=== PATIENT | female | born 1990 | race Two or more races ===

== ENCOUNTER 2020-09-13 17:58 | Emergency (ER) | payer MEDICARE, OTHER ==
[~2020-09-13] VITALS: Ht 157.5 cm; Wt 65.8 kg
--- NOTE | 2020-09-13 18:30 | NUR ---
urine collected and send to lab
--- NOTE | 2020-09-13 18:30 | NUR ---
BIBS FOR C/O BURNING UPON URINATION, URINARY FREQUENCY AND PAINFUL URINATION. DENIES CHILLS/FEVER. WILL CONTINUE TO MONITOR THE PATIENT.
[2020-09-13 19:58] LABS: BILIRUBIN,URINE NEGATIVE (NEGATIVE); COLOR,URINE YELLOW (YELLOW); LEUKOCYTE ESTERASE ,URINE NEGATIVE (NEGATIVE); NITRITE, URINE NEGATIVE (NEGATIVE); PROTEIN,URINE NEGATIVE (NEGATIVE); UGLUCOSE NEGATIVE (NEGATIVE); UROBILINOGEN,URINE 0.2 EU/dL (0.2)
--- NOTE | 2020-09-13 19:58 | NUR ---
CALLED LAB FOR FOLLOW UP FOR URINE. STATES THAT IT WILL TAKE 5-10MINUTES.
[2020-09-13] MEDS ORDERED: DOXY100C41 PO (20:20)
[2020-09-13] MEDS ORDERED: CEFTRIAXONE 500 MG VIAL ONE (20:21)
[2020-09-13] MEDS ORDERED: LIDOCAINE /MPF 1% VIAL 5 ML VIAL ONE (20:22)
[2020-09-13] MEDS ORDERED: LORAZEPAM 1 MG TABLET ONE (20:22)
[2020-09-13] MEDS ORDERED: LORAZEPAM 1 MG TABLET PO ONE (20:30)
[2020-09-13] MEDS ORDERED: CEFTRIAXONE 1 G VIAL IM ONE (20:30)
--- NOTE | 2020-09-13 20:31 | NUR ---
Patient discharged to home in stable condition. Written and verbal after care instructions given. Patient verbalizes understanding of instruction.
[2020-09-13 20:34] VITALS: BP 126/77
== END 2020-09-13 20:38 | disposition home or self-care (01) ==
LOC: ER 18:03
DX: N34.2 Other urethritis (principal); R30.0 Dysuria; F41.9 Anxiety disorder, unspecified; F20.9 Schizophrenia, unspecified; J45.909 Unspecified asthma, uncomplicated; F32.9 Major depressive disorder, single episode, unspecified; Z60.2 Problems related to living alone
CPT/HCPCS: 81003; 84703; 87491; 87591; 96372; 99283; J0696; J3490